=== PATIENT | female | born 2000 | race Caucasian/White ===

== ENCOUNTER → 2019-08-20 | Outpatient (CLI) | payer OTHER, SELFPAY ==
[2019-08-16 12:35] VITALS: BMI 30.1
== END | disposition home or self-care (01) ==
LOC: LABSPEC 11:22
PROVIDERS: Referring Provider Physician Assistant; Visit Provider Physician Assistant
DX: Z20.828 Contact with and (suspected) exposure to other viral communicable diseases (principal); R50.9 Fever, unspecified; R05 Cough; J02.9 Acute pharyngitis, unspecified; R09.81 Nasal congestion; R11.0 Nausea
CPT/HCPCS: 87635; G2023; U0003